=== PATIENT | female | born 2000 | race African-American/Black ===

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

== ENCOUNTER 2020-06-07 13:33 | Emergency (ER) | payer OTHER ==
[2020-06-08 12:20] LABS: SARS-CoV-2 MS2 Positive; SARS-CoV-2 N Gene Positive; SARS-CoV-2 S Gene Positive; SARS-CoV-2 by NAA DETECTED (NotDetected); SARS-CoV-2 orf1ab Positive
== END 2020-06-07 14:10 | disposition home or self-care (01) ==
LOC: ERS 13:33
DX: U07.1 COVID-19 (principal)
CPT/HCPCS: 87635; 99283; U0003

== ENCOUNTER 2020-09-21 13:21 | Emergency (ER) | payer SELFPAY ==
[2020-09-21] MEDS ORDERED: Haloperidol Lactate 5 MG/ML VIAL ONE (13:47)
[2020-09-21] MEDS ORDERED: Lorazepam 2 MG/ML VIAL ONE (13:47)
[2020-09-21] MEDS ORDERED: Ketamine 50 MG/ML (10ML VIAL) ONE (14:08)
[2020-09-21 15:07] LABS: #Basophils 0.1 thou/uL (0.0-0.2); #Eosinphils 0.2 thou/uL (0.0-0.7); #Monocytes 0.5 thou/uL (0.11-0.59); %Basophils 0.4 % (0.0-1.0); %Eosinophils 1.6 % (0.0-10.0); %Lymphocytes 16.9 % (21.0-51.0); %Monocytes 3.9 % (0.0-10.0); %Neutrophils 77.2 % (42.0-75.0); Hemoglobin 11.5 g/dL (12.0-16.0); Mean Corpuscular HGB CONC 34.7 g/dL (32.0-36.0); Mean Corpuscular Hemoglobin 31.9 pg (27.0-31.0); Mean Corpuscular Volume 92.1 fL (78.0-98.0); Mean Platelet Volume 7.6 fL (7.4-10.4); Platelet Count 251 thou/uL (130-400); RBC Distribution Width 11.2 % (11.5-14.5); White Blood Cell (WBC) Count 11.7 thou/uL (4.8-10.8)
[2020-09-21 15:12] LABS: BHCG - Serum POSITIVE (NEGATIVE); Pregs Control Background? CLEAR/WHITE (CLR/WHITE); Pregs Control Bar Appear? YES (CONTROL BAR)
[2020-09-21 15:25] LABS: ALT (SGPT) 20 U/L (8-55); AST (SGOT) 24 U/L (5-34); Alkaline Phosphatase 56 U/L (40-110); Anion Gap 15 mmol/L (10-20); BUN (Urea Nitrogen) 5 mg/dL (7.0-18.7); Bilirubin, Total 0.2 mg/dL (0.2-1.2); CK (CPK) 354 U/L (29-168); Calc. Creatinine Clearance 0 mL/min (70-130); Calcium 8.8 mg/dL (7.8-10.44); Carbon Dioxide 19 mmol/L (22-29); Chloride 107 mmol/L (98-107); Estimated GFR-MDRD Greater than 90; Globulin 2.8 g/dL (2.4-3.5); Glucose 82 mg/dL (70-105); Potassium 3.3 mmol/L (3.5-5.1); Protein, Total 6.8 g/dL (6.0-8.3); Sodium 138 mmol/L (136-145)
[2020-09-21 15:27] LABS: Acetaminophen Less than 6.0 mcg/mL (10.0-30.0); Alcohol Less than 10 mg/dL (Less than 10); Salicylate Less than 8.0 mg/dL (15.0-30.0)
[2020-09-21 15:39] LABS: Bacteria/HPF 2+ HPF (None Seen); Bilirubin Negative (Negative); Blood, Urine Negative (Negative); Clarity Turbid (Clear); Glucose, Urine (Dipstick) Normal (Negative); Ketone, Urine Negative (Negative); Leukocyte 500 Leu/uL (Negative); Nitrite Negative (Negative); Protein, Urine (Dipstick) Negative (Neg-Trace); RBC/HPF 0-3 HPF (0-3); Specific Gravity, Urine 1.005 (1.002-1.036); Squamous Epithelial Greater than 50 HPF (0-3); Urobilinogen Normal mg/dL (Less than 2); WBC/HPF Greater than 50 HPF (0-3); pH, Urine 7.5 (5.0-9.0)
[2020-09-21 15:44] LABS: Amphetamine Not Detected (NotDetected); Barbiturates Screen Not Detected (NotDetected); Benzodiazepine Screen Not Detected (NotDetected); Cocaine Metabolite Screen Not Detected (NotDetected); Medtox Control Line Valid? VALID (VALID); Medtox Reader # READER 1; Methadone Not Detected (NotDetected); Methamphetamine Not Detected (NotDetected); Opiate Screen Not Detected (NotDetected); Oxycodone Screen Not Detected (NotDetected); Phencyclidine (PCP) Not Detected (NotDetected); THC/Cannabinoid Screen Detected (NotDetected); Tricyclic Screen Not Detected (NotDetected)
--- NOTE | 2020-09-21 16:24 | ULT ---
Exam: Transabdominal pelvic ultrasound HISTORY: patient with suicidal ideation. Comparison none TECHNIQUE: Transabdominal imaging of the pelvis is performed. Ovaries are interrogated with grayscale , color flow, Doppler imaging and spectral wave form analysis FINDINGS: Uterus is identified, without any myometrial masses. Uterine measurements: 10.3 x 6.3 x 7.5 cm Within the endometrium, there is a gestational sac and pole. [place]-rump length: 3.55 cm, 10 weeks 5 days heart tones: 152 bpm Right ovary: Not appreciated. No masses or fluid in the right adnexa Left ovary: Normal echotexture, measuring 2.8 x 1.4 x 2.2 cm Free fluid: None Ovarian Doppler: Vascular flow to the visualized left ovary IMPRESSION: 1. Single intrauterine gestation with heart tones. Gestational age by crown-rump length is 10 w eeks 3 days.
== END 2020-09-22 03:47 ==
LOC: ERS 13:21
DX: R45.851 Suicidal ideations (principal)
CPT/HCPCS: 36415; 76856; 80053; 80306; 80307; 81003; 81015; 82550; 84443; 84702; 84703; 85025; 87086; 93976; 96372; J1630; J2060